=== PATIENT | female | born 1960 | race Caucasian/White ===

== ENCOUNTER 2018-12-17 09:58 | Emergency (ER) | payer SELFPAY ==
[2018-12-17 10:44] VITALS: BP 145/80
--- NOTE | 2018-12-17 11:08 | UC ---
Respiratory Complaint HPI - HPI Summary HPI Summary: 58-year-old woman who 58-year-old woman comes in today with a chief complaint of a cough and splinting right lower chest pain. She's been sick for about a week and a half she wonders if she has pneumonia. No recent fevers. Does feel little short of breath. Patient moved to the local area from [place] 2 weeks ago and does not have a primary care physician. 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 She like her Coumadin level checked today. Patient also has a nonhealing wound of the right lower leg. She suffered the injury about 3 weeks ago she was on antibiotics overall it's improved but is still slightly swollen. In her present household there is somebody with the flu when somebody with strep throat in her present household - History of Current Complaint Chief Complaint: UCGeneralIllness Stated Complaint: FEVER,CHILLS,ACHY,COUGH Time Seen by Provider: 12/17/18 10:38 Hx Last Menstrual Period: done Pain Intensity: 8 - Allergies/Home Medications Allergies/Adverse Reactions: Allergies Allergy/AdvReac Type Severity Reaction Status Date / Time codeine AdvReac GI Upset Verified 12/17/18 10:31 Home Medications: Home Medications Aspirin [Adult Aspirin] 81 mg PO DAILY 12/17/18 [History Confirmed 12/17/18] Bimatoprost 0.01% OPHTH (NF) [Lumigan 0.01% OPHTH (NF)] 1 drop BOTH EYES QPM [History Confirmed 12/17/18] FLUoxetine CAP* [PROzac CAP*] 40 mg PO DAILY 12/17/18 [History Confirmed ] Rosuvastatin Calcium 40 mg PO BEDTIME 12/17/18 [History Confirmed 12/17/18] Warfarin TAB(*) [Coumadin TAB(*)] 1 mg PO QPM 12/17/18 [History Confirmed ] clonazePAM [Clonazepam] 1 mg PO BID 12/17/18 [History Confirmed 12/17/18] dilTIAZem HCl [Diltiazem HCl] 120 mg PO DAILY 12/17/18 [History Confirmed ] PMH/Surg Hx/FS Hx/Imm Hx Previously Healthy: Yes Cardiovascular History: Myocardial Infarction, Deep Vein Thrombosis Respiratory History: Pulmonary Embolism - Surgical History Surgical History: Yes Surgery Procedure, Year, and Place: Sx to remove clot from LUE. Heart cath (no stent placement) - Family History Known Family History: Positive: Non-Contributory - Social History Alcohol Use: None Substance Use Type: None Smoking Status (MU): Former Smoker When Did the Patient Quit Smoking/Using Tobacco: 1 month Review of Systems All Other Systems Reviewed And Are Negative: Yes Constitutional: Positive: Negative Skin: Positive: Other - SEE HPI Eyes: Positive: Negative ENT: Positive: Nasal Discharge - MILD Cardiovascular: Positive: Chest Pain - SEE HPI Gastrointestinal: Positive: Negative Motor: Positive: Negative Neurovascular: Positive: Negative Musculoskeletal: Positive: Negative Neurological: Positive: Negative Psychological: Positive: Negative Is Patient Immunocompromised?: No Physical Exam Triage Information Reviewed: Yes Appearance: No Pain Distress, Well-Nourished, Ill-Appearing - MILD Vital Signs: Initial Vital Signs Temp 96.4 F 12/17/18 10:36 Pulse 82 12/17/18 10:36 Resp 20 12/17/18 10:36 BP 145/80 12/17/18 10:36 Pulse Ox 97 12/17/18 10:36 Vital Signs Reviewed: Yes Eye Exam: Normal Eyes: Positive: Conjunctiva Clear ENT: Positive: Pharyngeal erythema, Nasal congestion, Nasal drainage, TMs normal Neck exam: Normal Neck: Positive: Supple Respiratory: Positive: No respiratory distress, No accessory muscle use, Rhonchi - RT LOWER Cardiovascular: Positive: RRR Abdomen Description: Positive: Nontender, Soft Bowel Sounds: Positive: Present Musculoskeletal Exam: Normal Musculoskeletal: Positive: Strength Intact, ROM Intact, No Edema Neurological Exam: Normal Neurological: Positive: Alert, Muscle Tone Normal Psychological Exam: Normal Psychological: Positive: Age Appropriate Behavior Skin: Positive: Other - 1CM DIAMERTER AVULSION LACERATION WITH ESCHAR RT LOWER ANTERIOR ECHAVARRIA. SLIGHTLY SWOLLEN LOWER EDGE. NO OBVIOUS ABSCESS. MILD ERYTHEMA. NO STREAKING. UC Diagnostic Evaluation - Laboratory O2 Sat by Pulse Oximetry: 97 Respiratory Course/Dx - Course Course Of Treatment: Patient Name: MOMO VIERA Medical Record#: [id number]. Ordering Physician: Jean Anderson MD Acct.#: [id number]. : 1959 Age: 58 Sex: F Location: [facility]. Exam Date: 12/17/18 110 ADM Status: REG ER. Order Information: CHEST PA LAT 2 VWS. Accession Number: [id number]. CPT: 10376. INDICATION: Chest pain and cough. COMPARISON: Comparison is made with a prior study from July 27, 2010. TECHNIQUE: Dual- energy PA and lateral views of the chest were obtained. FINDINGS: The heart is within normal limits in size. Mediastinal and hilar contours. appear within normal limits. The lungs are clear. No pleural effusion is present. IMPRESSION : NO EVIDENCE FOR ACTIVE CARDIOPULMONARY DISEASE. . <Electronically signed by Carlos Corey MD in OV> 12/17/18 1131. I discussed the x-ray reports with the patient. I didn' t hear rhonchi in the right lower lung base with the patient was complaining of the chest pain splinting. My concern is that she has a bronchitis possibly early pneumonia in that area. We will treat with Johan azithromycin. Flu is negative strep was negative. Patient will need to follow up with the primary care doctor and I let her know about the care connections and the [facility] physician referral. We also discussed the possibility of her splinting chest pain to be from a pulmonary embolus. Patient reports away she found out she had a pulmonary embolus as she had a CAT scan of her chest for a different reason and they found incidentally. I let her know that if she did not improve rapidly if she got worse she needed to go the emergency department for further evaluation to ensure that she did not have a pulmonary embolus. Given the fact that she's been feeling sick with upper respiratory tract infection symptoms the history is more consistent with infection causing this chest pain at this time. - Differential Dx/Diagnosis Provider Diagnosis: Anticoagulated on Coumadin, Bronchitis, Non-healing wound of lower extremity Discharge - Sign-Out/Discharge Documenting (check all that apply): Patient Departure All imaging exams completed and their final reports reviewed: No Studies - Discharge Plan Condition: Stable Disposition: HOME Prescriptions: Azithromyxin ERVIN (NF) [Z-Ervin (Zithromax) 250 mg tabs #6] 2 tab PO .TODAY, THEN 1 DAILY #6 tab Patient Education Materials: Acute Bronchitis (ED), Chronic Wound Care (ED) Referrals: [facility] [Outside] [facility] PHYSICIAN REFERRAL [Outside] Additional Instructions: FOLLOW UP WITH YOUR DOCTOR FOR YOUR BRONCHITIS, YOU NON HEALING WOUND OF THE RIGHT LOWER LEG, COUMADIN MANAGEMENT AND ALL YOUR MEDICAL NEEDS. GO TO THE EMERGENCY DEPARTMENT FOR ANY WORSENING OF YOUR CONDITION; CHEST PAIN, SHORTNESS OF BREATH, FEVER, YOU FEEL ILL OR QUESTIONS OR CONCERNS. - Billing Disposition and Condition Condition: STABLE Disposition: Home
[2018-12-17 11:27] LABS: Influenza A Molecular NEGATIVE (Negative); Influenza B Molecular NEGATIVE (Negative)
[2018-12-17 18:52] LABS: ABS Basophils 0 10^3/ul (0-0.2); ABS Eosinophils 0.1 10^3/ul (0-0.6); ABS Lymphocytes 1.9 10^3/ul (1.0-4.8); ABS Monocytes 0.4 10^3/ul (0-0.8); ABS Neutrophils 4.6 10^3/ul (1.5-7.7); ABS Nucleated RBC 0 10^3/ul; Eosinophil % 1.5 %; Hematocrit 41 % (35-47); Hemoglobin 14.7 g/dl (12.0-16.0); Lymphocyte % 26.6 %; Mean Corpuscular HGB Conc 36 g/dl (31-36); Mean Corpuscular Hemoglobin 35 pg (27-31); Mean Corpuscular Volume 98 fL (80-97); Mean Platelet Volume 8.1 fL (7.4-10.4); Nucleated Red Blood Cells % 0; Platelet Count 395 10^3/ul (150-450); Red Blood Count 4.22 10^6/ul (4.00-5.40); Red Cell Distribution Width 15 % (10.5-15)
[2018-12-17 19:06] LABS: INR 3.56 (0.77-1.02)
[2018-12-17 19:08] LABS: Albumin 4.2 g/dL (3.2-5.2); Calcium 9.3 mg/dL (8.6-10.3); Potassium 4.1 mmol/L (3.5-5.0); Total Bilirubin 0.5 mg/dL (0.2-1.0)
[2018-12-17 19:14] LABS: Albumin/Globulin Ratio 1.4 (1-3); BUN/Creatinine Ratio 12.7 (8-20); EGFR African American 67.6 (>60); EGFR Non-African American 55.9 (>60); Total Protein 7.2 g/dL (6.4-8.9)
== END 2018-12-17 12:16 | disposition home or self-care (01) ==
LOC: UCCORT 09:58
DX: J40 Bronchitis, not specified as acute or chronic (principal); S81.811D Laceration without foreign body, right lower leg, subsequent encounter; I82.409 Acute embolism and thrombosis of unspecified deep veins of unspecified lower extremity; I25.2 Old myocardial infarction; I26.99 Other pulmonary embolism without acute cor pulmonale; Z79.01 Long term (current) use of anticoagulants; Z88.5 Allergy status to narcotic agent; Z79.82 Long term (current) use of aspirin; X58.XXXD Exposure to other specified factors, subsequent encounter; Z87.891 Personal history of nicotine dependence
CPT/HCPCS: 36415; 71046; 80053; 85025; 85610; 87651; 99202; G0463

== ENCOUNTER 2020-12-31 11:30 | Observation (INO) ==
[2020-12-31 12:21] LABS: ABS Basophils 0.1 10^3/ul (0-0.2); ABS Eosinophils 0.1 10^3/ul (0-0.6); ABS Lymphocytes 2.7 10^3/ul (1.0-4.8); ABS Monocytes 0.4 10^3/ul (0-0.8); ABS Neutrophils 4.1 10^3/ul (1.5-7.7); Eosinophil % 1.1 %; Hematocrit 48 % (35-47); Lymphocyte % 36.8 %; Mean Corpuscular HGB Conc 34 g/dL (31-36); Mean Corpuscular Hemoglobin 31 pg (27-31); Mean Corpuscular Volume 91 fL (80-97); Mean Platelet Volume 7.6 fL (7.4-10.4); Platelet Count 423 10^3/uL (150-450); Red Blood Count 5.23 10^6 /uL (3.70-4.87); Red Cell Distribution Width 15 % (10-15); White Blood Count 7.3 10^3/uL (3.5-10.8)
[2020-12-31] MEDS: NS 0.9% 1000 ml BAG 1,000 ML IV ONE ×2 (12:23→16:19)
[2020-12-31 12:37] LABS: Activated Partial Thrombo Time 30.4 seconds (26.0-38.0); INR 0.98 (0.82-1.09)
[2020-12-31] MEDS ORDERED: Iodixanol (CONTRAST) 320 MG/ML 100 ML SDV IV ONE (12:46)
[2020-12-31 12:51] LABS: Albumin 4.7 g/dL (3.2-5.2); Albumin/Globulin Ratio 1.5 (1-3); Calcium 9.9 mg/dL (8.6-10.3); EGFR African American 62.8 (>60); EGFR Non-African American 51.9 (>60); Globulin 3.2 g/dL (2-4); HDL Cholesterol 52.3 mg/dL; Potassium 4.3 mmol/L (3.5-5.0); Total Bilirubin 0.5 mg/dL (0.2-1.0); Total Protein 7.9 g/dL (6.4-8.9)
[2020-12-31 13:19] LABS: Urine Appearance Clear; Urine Bilirubin Negative (Negative); Urine Blood Negative (Negative); Urine Color Straw; Urine Glucose Negative (Negative); Urine Ketones Negative (Negative); Urine Nitrite Negative (Negative); Urine Protein Negative (Negative); Urine Specific Gravity 1.003 (1.010-1.030); Urine Urobilinogen Negative (Negative)
[2020-12-31] MEDS ORDERED: Al Hydrox/Mg Hydrox/Simet LIQ 30 ML UDC PO PRN (15:26)
[2020-12-31] MEDS ORDERED: Magnesium Sulfate 2 gm BAG 2 GM/50 ML BAG IVPB ONE (18:11)
[2020-12-31] MEDS ORDERED: Gadoteridol (CONTRAST) 279.3 MG/ML 10 ML IV ONE (19:42)
[2021-01-01 05:26] LABS: BUN/Creatinine Ratio 16.5 (8-20); Calcium 8.7 mg/dL (8.6-10.3); EGFR African American 76.6 (>60); EGFR Non-African American 63.3 (>60); Magnesium 2.2 mg/dL (1.9-2.7)
[2021-01-01] MEDS ORDERED: Aspirin EC 81 mg TAB.EC (enteric coated) PO SCH (09:00)
[2021-01-01 15:11] VITALS: BP 121/63
== END 2021-01-01 15:30 | disposition home or self-care (01) ==
LOC: ED 11:30 → MEDTELE 11:30
PROVIDERS: ADMIT Pediatrics; ATTEND Internal Medicine

== ENCOUNTER 2021-10-14 11:14 | Observation (INO) ==
[2021-10-14] MEDS ORDERED: NS 0.9% 1000 ml BAG 1,000 ML IV ONE (11:18)
[2021-10-14 11:50] LABS: ABS Basophils 0.1 10^3/ul (0-0.2); ABS Lymphocytes 2.6 10^3/ul (1.0-4.8); ABS Monocytes 0.7 10^3/ul (0-0.8); ABS Neutrophils 5.8 10^3/ul (1.5-7.7); Eosinophil % 0.5 %; Hematocrit 46 % (35-47); Hemoglobin 16.2 g/dL (12.0-16.0); Lymphocyte % 28.1 %; Mean Corpuscular HGB Conc 35 g/dL (31-36); Mean Corpuscular Hemoglobin 32 pg (27-31); Mean Corpuscular Volume 93 fL (80-97); Mean Platelet Volume 7.7 fL (7.4-10.4); Platelet Count 392 10^3/uL (150-450); Red Cell Distribution Width 15 % (10-15); White Blood Count 9.2 10^3/uL (3.5-10.8)
[2021-10-14 12:00] LABS: Activated Partial Thrombo Time 35.8 seconds (26.0-38.0); INR 1.24 (0.86-1.15)
[2021-10-14 12:09] LABS: Albumin/Globulin Ratio 1.3 (1-3); Calcium 9.4 mg/dL (8.6-10.3); Globulin 3.1 g/dL (2-4); HDL Cholesterol 37.6 mg/dL; Potassium 4.4 mmol/L (3.5-5.0); Total Bilirubin 0.4 mg/dL (0.2-1.0); Total Protein 7.1 g/dL (6.4-8.9); eGFR CKD-EPI 58.8 (>60)
[2021-10-14] MEDS ORDERED: Iodixanol (CONTRAST) 320 MG/ML 100 ML SDV IV ONE (12:21)
[2021-10-14] MEDS ORDERED: Magnesium Hydroxide LIQ 30 ML UDC PO PRN (14:24)
[2021-10-14] MEDS ORDERED: Metoclopramide 5 MG/ML VIAL (10 mg) IV ONE (23:45)
[2021-10-14] MEDS ORDERED: diPHENhydraMINE IV 50 MG/ML 1 ml VIAL (BENADRYL) IV ONE (23:46)
[2021-10-15] MEDS: Amoxicillin/Clavul 875/125 TAB (Augmentin 875 tab) PO SCH ×2 (00:23→09:15)
[2021-10-15 06:30] LABS: ABS Basophils 0.1 10^3/ul (0-0.2); ABS Eosinophils 0.1 10^3/ul (0-0.6); ABS Lymphocytes 2.6 10^3/ul (1.0-4.8); ABS Monocytes 0.6 10^3/ul (0-0.8); ABS Neutrophils 4.2 10^3/ul (1.5-7.7); Eosinophil % 1.1 %; Hematocrit 43 % (35-47); Hemoglobin 14.6 g/dL (12.0-16.0); Lymphocyte % 34.2 %; Mean Corpuscular HGB Conc 34 g/dL (31-36); Mean Corpuscular Hemoglobin 32 pg (27-31); Mean Corpuscular Volume 92 fL (80-97); Mean Platelet Volume 7.9 fL (7.4-10.4); Nucleated Red Blood Cells % 0.1; Platelet Count 376 10^3/uL (150-450); Red Blood Count 4.62 10^6 /uL (3.70-4.87); Red Cell Distribution Width 16 % (10-15); White Blood Count 7.6 10^3/uL (3.5-10.8)
[2021-10-15 06:48] LABS: Calcium 8.7 mg/dL (8.6-10.3); Potassium 3.9 mmol/L (3.5-5.0); eGFR CKD-EPI 70.4 (>60)
[2021-10-15 12:57] VITALS: BP 136/70
[2021-10-15] MEDS ORDERED: Aspirin EC 81 mg TAB.EC (enteric coated) PO SCH (14:00)
== END 2021-10-15 15:30 | disposition home or self-care (01) ==
LOC: EDHOLD 11:14 → ED 11:14 → SUATTDRO 14:24 → MED 16:23
PROVIDERS: ADMIT Internal Medicine; ATTEND Hospitalist